=== PATIENT | male | born 1955 | race Caucasian/White ===

== ENCOUNTER 2017-01-06 17:02 | Emergency (ER) | payer BC ==
[~2017-01-06] VITALS: Ht 190.5 cm; Wt 113.4 kg
[2017-01-06 17:10] VITALS: BP 145/104
== END 2017-01-06 22:38 | disposition left against medical advice (07) ==
LOC: ER 17:09
DX: S61.011A Laceration without foreign body of right thumb without damage to nail, initial encounter (principal); Z53.21 Procedure and treatment not carried out due to patient leaving prior to being seen by health care provider; W27.8XXA Contact with other nonpowered hand tool, initial encounter; Y93.89 Activity, other specified; Y99.8 Other external cause status; Y92.89 Other specified places as the place of occurrence of the external cause